=== PATIENT | male | born 1985 | race Caucasian/White ===

== ENCOUNTER 2017-06-30 14:48 | Emergency (ER) | payer OTHER ==
[~2017-06-30] VITALS: Ht 175.3 cm; Wt 79.4 kg
[~2017-06-30 14:48] MED LIST: AMOX TR-K CLV 875-12 PO; AMOXIL500 MG PO; AUGMENTIN 875 M1 TAB PO; AUGMENTIN 875875 MG PO; BACTRIM DS 8001 TAB PO; LISINOPRIL-HCTZ 10-1 PO; LISINOPRIL/HCTZ1 TAB PO; METHOCARBAMOL500 MG PO; METHYLPREDNISOLO4 MG PO; OXYCODONE HYDRO10 M1 PO; OXYCODONE5 MG PO; OXYCONTIN30 MG PO; PANTOPRAZOLE SO40 MG PO; PROAIR HFA0.09 MG/Ac INH
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
--- NOTE | 2017-06-30 15:32 | RADIOLOGY REPORT ---
EXAMINATION: RIGHT FOOT AND ANKLE RADIOGRAPHS CLINICAL INFORMATION: 32-year-old man with pain post injury. COMPARISON: None TECHNIQUE: 3 views of the right ankle and 3 views of the right foot were obtained. FINDINGS: Ankle: There is an oblique fracture through the distal fibula metaphysis at the level of the talar dome. There is widening of the medial clear space suggesting disruption of the tibiotalar ligaments. The tibiofibular syndesmosis is potentially intact. There is a moderate joint effusion. Foot: There is no evidence of acute fracture. Alignment remains anatomic. Articular cartilage spaces are preserved. IMPRESSION: Tate B distal fibular fracture.
[2017-06-30] MEDS ORDERED: PANTOPRAZOLE SO40 M1 PO (16:20)
[2017-06-30] MEDS ORDERED: LISINOPRIL5 M1 PO (16:20)
[2017-06-30] MEDS ORDERED: METOPROLOL SUCC25 M1 PO (16:20)
[2017-06-30] MEDS ORDERED: OXYCODONE HCL10 M2 PO (16:20)
[2017-06-30] MEDS ORDERED: [UNRECOGNIZED DRUG - OTHER] PO (16:21)
[2017-06-30] MEDS ORDERED: CITALOPRAM HBR20 MG PO (16:21)
[2017-06-30 16:26] VITALS: BP 142/72
[2017-06-30] MEDS ORDERED: PERCOCET 5-3251 EACH PO (16:26)
[2017-06-30] MEDS ORDERED: IBUPROFEN800 M1 PO (18:15)
== END 2017-06-30 16:40 ==
LOC: ERH 14:48
DX: S82.831A Other fracture of upper and lower end of right fibula, initial encounter for closed fracture (principal); V28.4XXA Motorcycle driver injured in noncollision transport accident in traffic accident, initial encounter; Y92.488 Other paved roadways as the place of occurrence of the external cause
CPT/HCPCS: 73610-RT; 73630-RT; 96372; 96374; J1885

== ENCOUNTER → 2017-07-05 | Day surgery (SDC) | payer OTHER ==
[~2017-07-05] VITALS: Ht 175.3 cm; Wt 79.4 kg
[~2017-07-05] MED LIST changes: +CITALOPRAM HBR20 MG PO; +IBUPROFEN800 M1 PO; +LISINOPRIL5 M1 PO; +METOPROLOL SUCC25 M1 PO; +OXYCODONE HCL10 M2 PO; +PANTOPRAZOLE SO40 M1 PO; +PERCOCET 5-3251 EACH PO; +[UNRECOGNIZED DRUG - OTHER] PO
--- NOTE | 2017-07-06 11:30 | RADIOLOGY REPORT ---
EXAMINATION: Intraoperative fluoroscopy CLINICAL INFORMATION: Right ankle ORIF COMPARISON: Radiographs of the right ankle 06/30/2017 TECHNIQUE: Intraoperative fluoroscopy was provided for use by Dr. Emerson. A total of 55 images were saved to PACS. TOTAL FLUOROSCOPIC TIME: 54 seconds FINDINGS\E\IMPRESSION: Intraoperative fluoroscopy provided for use by Dr. Emerson. Please see operative note for detailed findings.
--- NOTE | 2017-07-08 14:15 | Operative Report ---
Operative/Inv Procedure Report Surgery Date: 07/05/17 Name of Procedure: 1) Right Lateral Malleolus Ankle Fracture Open Reduction And Internal Fixation (Idania) 2) Right Lateral Ankle Dislocation Open Reduction And Stabilization ( Idania) 3) Right Knee Joint Stress Application For Radiologic Assessment Of Stability (Idania) 4) Radiologic Examination Of The Right Knee To Rule Out Occult Fracture Or Other Undetected Abnormality To Account For Recently Increased Knee And Proximal Calf Region Symptoms (Idania) 5) Radiologic Examination Of The Right Proximal Tibia And Fibula To Rule Out Occult Fracture Or Other Undetected Abnormality To Account For Recently Increased Knee And Proximal Calf Region Symptoms (Idania) Pre-Operative Diagnosis: Primary Surgically Treated Diagnoses: 1) Right Lateral Malleolus Ankle Fracture 2) Right Lateral Ankle Subluxation And Instability Post-Operative Diagnosis: Same as preoperative diagnosis list. Estimated Blood Loss: scant Surgeon/Rail Switch Operator: YAW EMERSON MD - Primary Consulting Orthopaedic Surgeon Surgical Providers: Yaw Emerson M.D. - Orthopaedic Surgeon Anesthesia: laryngeal mask airway Monitors: Standard general anesthesia and other perioperative monitoring was performed per anesthesia. Refer to anesthesia records for details. IV Fluids: Standard anesthesia perioperative fluid management was performed without requirement for additional or emergent fluid resuscitation. Refer to anesthesia records for details. Implants: Implants Placed: Lateral Ankle Implants: Distal Fibular Plate-Screw Fixation Instrumentation: Distal Fibula Plate: 1 x Sharri Lateral Distal Fibular Locking Plate Plate Fixation Screws: 6 x full cortical thread locking self-tapping fixation screws 4 x full cortical thread non-locking self-tapping fixation screws Graft Placed: None Urine Output: Refer to anesthesia records for details. Drains: None Specimens: None Tourniquet: Mid-thigh tourniquette applied over Webril padding and inflated to 250 mm Hg x 81 minutes after exsanguination as described in body of operative report. Complications: None Operative/Procedure Note Note: Preoperative Holding Area Assessment/Preparation: The patient was evaluated in the preoperative holding area prior to surgery and no clinical changes or contraindications to surgical intervention were documented compared to the normal postinjury and preoperative baseline deficits localized to the right ankle related to his lateral malleolar fracture- dislocation as identified on preoperative emergency department, orthopaedic office and admission clearance evaluations. His right foot distal neurovascular assessment was normal and unchanged from clearance examinations. There was no gross swelling noted although examination was limited because of the splint. There was no passive stretch pain on toe movement. As in the office, the patient was otherwise grossly neurovascularly intact in both lower extremities to standard testing and had no signs of other significant areas of injury, symptomatology or deficit on general screening immediate preoperative examination. The surgical plan and site were confirmed with the patient and preoperative paperwork was finalized. The region of the intended surgical site was marked and the accessible extremity above and below the splint was cleansed and prepped per protocol. The primary surgeon, anesthesia care team members, and operating room staff confirmed the patient identity, surgical procedure, and operative site as well as other clinical details with the patient in an initial documented preoperative confirmation (awake time out) prior to the administration of sedation or anesthesia. Surgical Procedure: The procedure was performed by Dr. Emerson who was present and served as the primary surgeon for all critical intraoperative and perioperative decisions and interventions. Set-Up/Positioning/Exposure - The patient was brought to the operating room in stable condition, assisted in transferring himself to the operating table and positioned supine per standard protocol for ankle fracture ORIF. He then underwent uncomplicated induction of general anesthesia with placement of laryngeal mask airway as well as all appropriate monitors, lines and catheters without difficulty. Prophylactic antibiotic administration of 1 gram of IV Vancomycin based on patient body mass was performed for surgical prophylaxis. Vancomycin was used because of the patient's history of previous diagnosis and treatment requirement for an MRSA cutaneous infection several years ago. Antibiotic administration was completed at least 30 and less than 60 minutes prior to making an incision per orthopaedic surgical operative open internal fixation fracture care operative protocols. A roll was placed under the right hemipelvis to align his right leg in a more vertical resting position so as to optimize access particularly to the lateral side of the ankle. His splint was removed and his tissues checked. There was moderate but not excessive swelling evident with at least partial visualization of normal cutaneous topography. No contraindications to surgical intervention were noted. The arms were abducted less than 90 degrees at the shoulders and supported on well-padded arm-boards with all pressure points padded. The surgeon, anesthesia care team, and operating room staff again documented the patient identity, surgical procedure, and operative site as well as other clinical details in a final documented confirmation (final time out) prior to beginning the procedure. Anteroposterior and mortise view fluoroscopic images were obtained to optimally assess the fracture pattern and degree of instability as well as to confirm that the ankle dislocation was reducible without any evidence of a physical block to reduction which might require separate medial dissection. The ankle mortise did appear to fully reduce and so open surgical intervention was isolated to the lateral side of the ankle. Because the patient reported increasing pain in the anterolateral proximal calf just below the knee over the last several days prior to surgery, fluoroscopy was also used to evaluate both the knee and the full length of the tibia and fibula radiologically. There was no evidence of fracture, dislocation or proximal instability on stress assessment of the knee and proximal interosseous ligament. After sterile prep and drape using standard technique with DuraPrep, an incision was mapped and made extending longitudinally from the distal tip of the lateral malleolus to a level approximately 3 cm above the fracture site. Cutaneous hemostasis was achieved using Bovie electrocautery. The incision was then covered and the right lower extremity was exsanguinated with an Esmark. The tourniquet was inflated to 250 mm of Hg. The overlying soft tissues were divided longitudinally to expose the lateral margin of the distal fibula and the full extent of the oblique fibula fracture. Care was taken to preserve the anterior and posterior soft tissue attachments where possible to optimize blood flow for fracture healing. The ankle dislocation was reduced and this facilitated realignment of the two primary portions of the fractured distal fibula. The dislocation was sufficiently unstable to require distinct procedural intervention of continuous manual reduction until the fibula fracture was stabilized in its reduced position. The fracture was found to extend from proximal-posterior to distal-anterior correlating with the preoperative radiographs. There was only minimal comminution. The fracture site was debrided of coagulated hematoma and soft tissue using a curette. The fracture site was slightly distracted and thoroughly irrigated into the ankle joint using manual pressure bulb anibiotic irrigation technique prior to final reduction and fixation. The fracture was then reduced to a near-anatomic position with a tenaculum clamp. Fracture and dislocation reduction, alignment and stability were evaluated on fluoroscopic views and found to be optimal. An appropriate length Limestone locking distal lateral fibula plate was selected and applied to the lateral margin of the distal fibula. It was found to match the normal anatomy of this region and did not require additional contouring, Single distal and proximal nonlocking screws were placed above and below the fracture using standard screw placement technique of drilling, measuring with a depth gauge and then placing an appropriate length screw at each site with good bicortical purchase and fixation. These initial screw served to approximate the plate to the fibula and further stabilize the fracture. An anterior to posterior lag screw was then placed across and orthogonal to the fracture line using standard lag technique of drilling both cortices, overdrilling the anterior cortex, measuring with a depth gauge and placing appropriate length self-tapping screw with good fixation and lag effect. The remaining plate holes were filled with primarily locking screws proximally and primarily non-locking screws distally using identical technique to that described above and with good proximal bicortical and distal unicortical purchase and fixation as per the construct design. Optimal position and fixation was confirmed throughout this process and after completion of all hardware placement using anteroposterior, lateral and mortise fluoroscopic images of the ankle. Final images were uploaded to the [facility] PACS. Postoperative ankle joint stability was documented under medial, lateral, internal rotation, external rotation, inversion and eversion stress application with no evidence of residual instability or subluxation. Closure/Recovery - The surgical site was thoroughly irrigated and hemostasis was carefully achieved prior to closure. Initial counts were correct prior to closure. The deep muscular closure was performed with #2-0 Vicryl interrupted, simple suture technique and provided good plate coverage throughout the length of the construct. The superficial subcutaneous layer was closed with #3-0 undyed Vicryl inverted, interrupted, simple sutures. The skin was closed using dale with the edges everted. A standard, sterile dressing of Xeroform and folded fluff gauze 6x6s was applied and held in place with sterile Webril wrapping taking care to avoid tension or folds in the wrap. All final counts were correct prior to removing the drapes. A triplane (posterior and sugartong) splint was applied and wrapped with kayleigh wraps taking care to avoid any folds in the splint and any excessive tension in the wrap. The ankle was held in the plantigrade position until the splint was rigid after which the splint was sufficient to maintain this optimal position. The layngeal mask airway was removed without difficulty and the patient was transferred to the stretcher taking care to support and protect the operative leg during transfer. Recovery Room Assessment: The patient was transported to the recovery room in stable condition. Neurological assessmnet was not possible because of the anesthetic regional block used preoperatively (which was still providing excellent anesthetic and analgesic effect). There was no suggestion of any adverse condition, new deficits or worsening of his pre-operative symptoms otherwise on initial recovery from anesthesia. The patient will follow the usual postoperative protocol for ankle ORIF with some adjustments and accommodations made to the standard protocol because of his preoperative ankle instability and his preoperative dependence on intermediate dose narcotic medication for pain control of a chronic lumbar post-surgical condition making it very difficult to mobilize with crutches or a walker which may increase his medication requirements and potentially slow his recovery compared to other patients. His postoperative care plan will include early mobilization but strict non- weight-bearing on the right, oral medication pain control and same day home discharge planning with instructions regarding splint care as well as use of ice and elevation. He will be seen in 2 weeks at the office for splint removal, surgical site check, radiographs and application of short leg cast. He will contact the office earlier for any problems or concerns. His preoperative Oxycodone dose was 10 mg PO q6 hours. He was prescribed a standard tapering dose of Oxycodone appropriate to the surgery performed which he will use above and beyond his baseline regimen. Since he is now out of his medication from pain management, I will now provide him with both his chronic and acute doses for the next two weeks after which he will return to pain management for any further prescriptions. He was also prescribed Diazepam to help control any spasm which he may have related to his injury and/or the surgical procedure. Discharge Disposition: PACU CC: Idania AMBROSE,Yaw Reinoso
== END ==
LOC: STS 02:34
DX: S82.61XA Displaced fracture of lateral malleolus of right fibula, initial encounter for closed fracture (principal); M25.371 Other instability, right ankle; X58.XXXA Exposure to other specified factors, initial encounter; M54.89 Other dorsalgia; G89.29 Other chronic pain; I10 Essential (primary) hypertension; K21.9 Gastro-esophageal reflux disease without esophagitis
CPT/HCPCS: 73600-RT; C1713; J0690; J2250; J3370